=== PATIENT | female | born 1960 | race Caucasian/White ===

== ENCOUNTER 2020-10-18 11:18 | Outpatient (CLI) | payer MEDICARE, SELFPAY ==
--- NOTE | ~2020-10-18 | XR_ITS ---
XR knee RT 3V 10/18/2020 12:06 Indication: Right knee pain Procedure: 3 views right knee Comparison: No prior studies for comparison. Findings: No fracture, subluxation or dislocation. No significant joint effusion. No foreign body. Impression: 1: No significant bone or joint abnormality. Reviewed, dictated and finalized at location B. Impression: 1: No significant bone or joint abnormality.
--- NOTE | ~2020-10-18 | XR_ITS ---
XR shoulder RT min 2V 10/18/2020 12:06 Indication: Right shoulder pain Procedure: 4 views right shoulder Comparison: No prior studies for comparison. Findings: No fracture, subluxation or dislocation. No significant soft tissue abnormality. No foreign bodies. There are mild degenerative changes of the acromioclavicular joint. Visualized lung parenchy ma is unremarkable. Impression: 1: Mild osteoarthritis of the right shoulder. Reviewed, dictated and finalized at location B. Impression: 1: Mild osteoarthritis of the right shoulder.
== END 2020-10-18 11:19 | disposition home or self-care (01) ==
PROVIDERS: PCP Family Medicine; Visit Provider Physician Assistant
DX: M19.011 Primary osteoarthritis, right shoulder (principal); M25.561 Pain in right knee
CPT/HCPCS: 73030; 73562

== ENCOUNTER 2020-10-26 10:56 | Outpatient (CLI) | payer MEDICARE, SELFPAY ==
--- NOTE | ~2020-10-26 | XR_ITS ---
XR thoracic spine 3V DATE: 10/26/2020 12:14 INDICATION: Back pain, radicular pain. TECHNIQUE: AP, lateral, swimmer views COMPARISON: None FINDINGS: Diffuse osteopenia. There is mild degenerative spurring of the thoracic spine. There is min imal thoracic scoliosis. No fracture or bone destruction is evident. The thoracic pedicles are intact. There is no paraspinal soft tissue thickening. IMPRESSION: Osteopenia Mild degenerative spurring Reviewed, dictated and finalized at location A.
== END 2020-10-26 10:57 | disposition home or self-care (01) ==
PROVIDERS: PCP Family Medicine; Visit Provider Physician Assistant
DX: M54.14 Radiculopathy, thoracic region (principal); M85.88 Other specified disorders of bone density and structure, other site
CPT/HCPCS: 72072

== ENCOUNTER 2020-11-01 13:18 | Outpatient (CLI) | payer MEDICARE, SELFPAY ==
--- NOTE | ~2020-11-01 | XR_ITS ---
EXAMINATION: XR lumbar spine min 4V DATE: 11/01/2020 13:53 INDICATION: Dorsalgia, unspecified TECHNIQUE: Anteroposterior, lateral, and bilateral oblique views of the lumbar spine, and cone-down l ateral view of the lumbosacral junction were obtained. COMPARISON: MRI, 09/01/2007 FINDINGS: There is no fracture, dislocation, or subluxation. There is moderate loss of intervertebral disc space height at L2-3. The vertebral body heights are maintained. Small degenerative osteophytes project from the anterior endplates of multiple vertebral bodies. Mild facet osteoarthritis is noted in the lower lumbar spine. IMPRESSION: 1. Mild to moderate lumbar spondylosis without acute findings. Reviewed, dictated and finalized at location A.
--- NOTE | ~2020-11-01 | XR_ITS ---
EXAMINATION:XR cervical spine 4-5V DATE: 11/01/2020 13:53 INDICATION: Neck pain TECHNIQUE: AP, lateral, lateral swimmers and odontoid views of the cervical spine are provided. COMPARISON: MRI, 09/01/2007 FINDINGS: Alignment is normal. The odontoid is intact. No fracture is identified. There is mild to mo derate loss of intervertebral disc space height at C5-6. The vertebral body heights are maintained. S mall degenerative osteophytes project from the anterior endplates of multiple vertebral bodies. There is mild multilevel facet and uncovertebral joint osteoarthritis. Prevertebral soft tissues are felicita l. IMPRESSION: 1. Mild cervical spondylosis without acute findings. Reviewed, dictated and finalized at location A.
== END 2020-11-01 13:19 | disposition home or self-care (01) ==
LOC: ANHIMG 13:25
PROVIDERS: PCP Family Medicine; Visit Provider Physician Assistant
DX: M47.892 Other spondylosis, cervical region (principal); M47.896 Other spondylosis, lumbar region
CPT/HCPCS: 72050; 72110

== ENCOUNTER 2020-12-10 09:25 | Outpatient (CLI) | payer MEDICARE, SELFPAY ==
--- NOTE | ~2020-12-10 | MM_ITS ---
EXAMINATION: MM screening jesús BI w kendall HISTORY: Screening mammogram TECHNIQUE: Craniocaudal and mediolateral oblique 3-D tomosynthesis images were obtained and synthetic 2-D images were generated. CAD analysis was submitted and interpreted. COMPARISON: 11/30/2017, 09/08/2015 bilateral digital screening mammogram examinations BREAST PARENCHYMAL COMPOSITION: There are scattered areas of fibroglandular density. FINDINGS: There is no evidence of suspicious mass, calcification, or architectural distortion to sugg est malignancy in either breast. There has been no suspicious interval change. IMPRESSION: 1. No mammographic evidence of malignancy. 2. Recommend routine screening mammography in one year. BI-RADS Category 1: Negative Reviewed, dictated and finalized at location A.
== END 2020-12-10 09:26 | disposition home or self-care (01) ==
LOC: ANHIMG 09:28
PROVIDERS: PCP Family Medicine; Visit Provider Physician Assistant
DX: Z12.31 Encounter for screening mammogram for malignant neoplasm of breast (principal)
CPT/HCPCS: 77063; 77067

== ENCOUNTER 2022-05-26 02:21 | Emergency (ER) | payer MEDICARE, SELFPAY ==
[2022-05-26] VITALS (35 sets, daily range): BP systolic 94–186; BP diastolic 57–81; PULSE 63–80; RESP 11–32; TEMP 36.7; O2SAT 92–97
--- NOTE | ~2022-05-26 | CT_ITS ---
EXAMINATION:CT chest high resolution w con DATE: 05/26/2022 04:50 INDICATION: Hemoptysis. TECHNIQUE: Computed tomography (CT) of the chest was performed with 100 mm of Omnipaque 350 intraveno us contrast. Automated exposure control and iterative reconstruction technique were employed. The dos e-length product (DLP) was 171.63 mGy-cm. COMPARISON: Chest single view 05/26/2022 FINDINGS: There is mild emphysema. There is a 3 mm nodule in right upper lobe, likely benign. There i s mild scarring at the lung apices. There is mild atelectasis bilaterally. A calcified right lung nod ule and calcified mediastinal lymph nodes are consistent with old granulomatous disease. No pleural e ffusion. The heart size is normal. No pericardial effusion. There is mild right hilar lymphadenopathy , likely reactive. Calcifications in the liver and spleen are consistent with old granulomatous disea se. There is no pulmonary embolus. There is moderate thoracic spondylosis. IMPRESSION: 1. Mild emphysema. 2. Mild scarring at the lung apices. 3. Mild right hilar lymphadenopathy, likely reactive. Reviewed, dictated and finalized at location A. UCTION COOK
--- NOTE | ~2022-05-26 | XR_ITS ---
EXAMINATION: XR chest 1V portable DATE: 05/26/2022 02:48 INDICATION: Cough and shortness of breath. TECHNIQUE: A single frontal view of the chest was obtained. COMPARISON: Chest 2 views 02/01/2016, chest CT 05/26/2022 FINDINGS: The lungs are hyperexpanded, consistent with emphysema. There is mild scarring at the lung apices. No pleural effusion or pneumothorax. The heart size is normal. IMPRESSION: 1. Emphysema. 2. Mild scarring at the lung apices. Reviewed, dictated and finalized at location A. R LINEWORKER
--- NOTE | 2022-05-26 02:27 | ECG_ITS ---
Measurements Intervals [place] Rate: 69 P: 65 NH: 131 QRS: 3 QRSD: 92 T: 56 QT: 377 QTc: 406 Interpretive Statements SINUS RHYTHM POSSIBLE LEFT ATRIAL ENLARGEMENT BASELINE ARTIFACT- V5 BORDERLINE ECG COMPARED TO ECG 04/16/2019 14:56:48 T WAVE ABNORMALITY RESOLVED Electronically Signed On 05-26-2022 6:50:20 WOOL SHEARER by Bola Dale D.O.
[2022-05-26 02:55] LABS: Basophils Absolute Auto 0.1 K/mm3 (0.0-0.1); Basophils Percent Auto 0.5 % (0.2-1.2); Eosinophils Absolute Auto 0.1 K/mm3 (0-0.3); Eosinophils Percent Auto 0.5 % (0-4.4); Hematocrit 43.1 % (37.0-47.0); Hemoglobin 14.5 g/dL (12.0-15.0); Immature Granulocyte Absolute 0.03 K/mm3 (0.00-0.031); Immature Granulocyte Percent A 0.3 % (0-0.5); Lymphocytes Absolute Auto 2.81 K/mm3 (0.9-3.2); Lymphocytes Percent Auto 25.4 % (18.3-44.2); Mean Corpuscular HGB Conc 33.6 g/dl (32-36); Mean Corpuscular Hemoglobin 32.1 pg (26-34); Mean Corpuscular Volume 95.4 fl (80-100); Mean Platelet Volume 9.7 fl (7.4-10.4); Monocytes Absolute Auto 0.8 K/mm3 (0.1-0.6); Monocytes Percent Auto 7.3 % (2.6-8.5); Neutrophils Absolute Auto 7.3 K/mm3 (1.3-6.7); Platelet Count Result 346 k/mm3 (150-375); Red Blood Count 4.52 M/mm3 (4.2-5.4); Red Cell Distribution Width 12.8 % (11.5-14.5); White Blood Count 11.1 K/mm3 (4.5-10.0)
[2022-05-26 03:10] LABS: Alanine Aminotransferase 27 U/L (6-35); Albumin Level 4.5 g/dL (3.5-5.1); Alkaline Phosphatase 98 U/L (38-126); Anion Gap 3 mmol/L (8-16); Aspartate Amino Transferase 37 U/L (14-36); Bilirubin,Total 0.7 mg/dL (0.2-1.3); Blood Urea Nitrogen 10 mg/dL (7-17); Calcium 9.7 mg/dL (8.4-10.2); Carbon Dioxide 36 mmol/L (22-30); Chloride 101 mmol/L (98-107); Estimated CRCL calculation 69 ml/min; Estimated Glomerular Filt Rate > 60; Glucose 120 mg/dL (65-110); Potassium 3.7 mmol/L (3.4-5.0); Sodium 140 mmol/L (137-145)
[2022-05-26 03:22] LABS: Troponin I < 0.012 ng/mL (0.000-0.034)
--- NOTE | 2022-05-26 03:31 | ED.GENADULT ---
HPI - General Adult General Chief complaint: Recheck/Abnormal Lab/Rx Stated complaint: coughing up blood Source: patient, EMS and RN notes reviewed Mode of arrival: EMS Limitations: no limitations History of Present Illness HPI narrative: This is a 62 year old female with history of emphysema who presents for evaluation of hemoptysis. Patient was diagnosed with covid 2 weeks ago and she felt that she was doing better. She reports last night she developed cough, hoarseness and chest tightnessness. She reports coughing up phlegm and it occasionally has blood. She does not cough blood every time. She denies nausea, vomiting, abdominal pain. She does reports sore throat. She denies epistaxis. She denies vomiting blood. She states she has coughed up quarter size of blood over the night. Related Data Home Medications Medication Instructions Recorded Confirmed One-A-Day Womens Formula 04/16/19 10/27/20 aspirin 325 mg tablet 325 mg PO DAILY 10/06/20 10/27/20 cetirizine 10 mg tablet (All Day 10 mg PO DAILY PRN 10/06/20 10/27/20 Allergy (cetirizine)) Allergies Allergy/AdvReac Type Severity Reaction Status Date / Time sulfamethoxazole Allergy Mild Unknown Verified 10/19/21 13:51 sulfamethizole Allergy Unknown Unknown Verified 10/19/21 13:51 trimethoprim Allergy Unknown Unknown Verified 10/19/21 13:51 Review of Systems Constitutional: Constitutional: Denies weakness ENT: Denies epistaxis and Reports sore throat Cardiovascular: Cardiovascular: Denies syncope, Denies rapid heart rate, Denies irregular heart rhythm, Denies leg edema and Denies dyspnea Respiratory: Respiratory: Reports chest congestion, Reports cough, Reports hemoptysis, Denies excessive phlegm production and Denies dyspnea Gastrointestinal: Gastrointestinal: Denies abdominal pain, Denies hematochezia, Denies diarrhea and Denies vomiting Genitourinary: Genitourinary: Denies hematuria and Denies dysuria Musculoskeletal: Musculoskeletal: Denies joint swelling, Denies loss of height and Denies muscle weakness Neurologic: Denies syncope, Denies focal weakness and Denies weakness PMFSH Past Medical History Medical History (Updated 05/26/22 @ 06:39 by Anna Kelley MD) Anxiety Asthma DDD (degenerative disc disease) Depression Herniated disc Mixed hyperlipidemia Thoracic radiculopathy Tobacco abuse Surgical History Surgical History History of rotator cuff surgery right History of tubal ligation Family History Family History Mother Family history of cardiovascular disease Carcinoma of colon Grandparent Parkinson disease Other Parkinson disease Social History Social History Smoking packs per day: 1 Smoking cigarettes per day: 20.0 Years smoked: 30 Smoking pack-years: 30.00 Smoking status: Never smoker Tobacco type: cigarettes (pack a day ) Second hand tobacco smoke exposure: Yes Alcohol intake: never Substance use type: does not use Gender identity (if verbalized by the patient): Female Exam Const: General: no acute distress and alert Nutritional Appearance: well nourished Orientation/consciousness: patient oriented x3 HENMT: Head: normal to inspection Ears: external ears normal Face/Nose/Sinus: Normal external nose present Face and sinus: normal facial exam Mouth: Yes Normal oral and palatal mucosa present, Yes lip normal and Yes moist mucous membranes Teeth and gingiva: dentition normal Throat: posterior oropharynx normal and uvula midline Other: no blood seen in posterior oropharynx Eyes: EOM: EOMs intact bilaterally Neck: Neck: normal visual inspection Chest: Chest palpation & inspection: normal inspection of the chest Resp: Effort & Inspection: normal respiratory effort Auscultation: clear to auscultation jose
[2022-05-26 03:52] LABS: Partial Thromboplastin Time 33.5 SECONDS (22.3-36.8)
[2022-05-26 04:06] LABS: D Dimer 0.46 ug/mL (<0.48)
[2022-05-26 04:51] LABS: SARS-CoV-2 RNA PCR Negative
== END 2022-05-26 07:01 | disposition home or self-care (01) ==
PROVIDERS: Emergency Provider General Practice; PCP Family Medicine
DX: R04.2 Hemoptysis (principal); J43.9 Emphysema, unspecified; J45.909 Unspecified asthma, uncomplicated; E78.2 Mixed hyperlipidemia; F17.210 Nicotine dependence, cigarettes, uncomplicated; Z79.82 Long term (current) use of aspirin
CPT/HCPCS: 36415; 71045; 71260; 80053; 83605; 84484; 85025; 85380; 85610; 85730; 87040; 87077; 93005; 99284; Q9967; U0003; U0005

== ENCOUNTER 2022-05-30 10:03 | Observation (INO) | payer MEDICARE, SELFPAY ==
[2022-05-30] VITALS (7 sets, daily range): BP systolic 117–139; BP diastolic 50–64; PULSE 64–88; RESP 14–20; TEMP 36.2–36.3; O2SAT 93–96
--- NOTE | ~2022-05-30 | XR_ITS ---
Clinical Indication: Covid 19 infection PA and lateral views of the chest: Comparison: 05/26/2022 Findings: The lungs are clear, without evidence of focal consolidation or pleural effusion. Probable COPD. Cardiomediastinal silhouette is within normal limits. Bones and soft tissues are unremarkable. Impression: Clear lungs. COPD. Reviewed, dictated and finalized at location . LINER Impression: Clear lungs. COPD.
[2022-05-30 11:04] LABS: Basophils Absolute Auto 0.1 K/mm3 (0.0-0.1); Basophils Percent Auto 0.7 % (0.2-1.2); Eosinophils Percent Auto 0.4 % (0-4.4); Hematocrit 43.2 % (37.0-47.0); Hemoglobin 14.5 g/dL (12.0-15.0); Immature Granulocyte Absolute 0.02 K/mm3 (0.00-0.031); Immature Granulocyte Percent A 0.3 % (0-0.5); Lymphocytes Absolute Auto 1.45 K/mm3 (0.9-3.2); Mean Corpuscular HGB Conc 33.6 g/dl (32-36); Mean Corpuscular Hemoglobin 32.2 pg (26-34); Mean Corpuscular Volume 95.8 fl (80-100); Mean Platelet Volume 9.5 fl (7.4-10.4); Monocytes Absolute Auto 0.4 K/mm3 (0.1-0.6); Monocytes Percent Auto 5.4 % (2.6-8.5); Neutrophils Absolute Auto 5.3 K/mm3 (1.3-6.7); Neutrophils Percent Auto 73.2 % (45.5-73.1); Platelet Count Result 333 k/mm3 (150-375); Red Blood Count 4.51 M/mm3 (4.2-5.4); Red Cell Distribution Width 12.7 % (11.5-14.5); White Blood Count 7.2 K/mm3 (4.5-10.0)
[2022-05-30 11:12] LABS: Prothrombin Time 13.1 Seconds (11.1-14.7)
[2022-05-30 11:13] LABS: Partial Thromboplastin Time 31.8 SECONDS (22.3-36.8)
[2022-05-30 11:14] LABS: Lactic Acid Reflex 0.8 mmol/L (0.7-2.0)
[2022-05-30 11:16] LABS: Alanine Aminotransferase 25 U/L (6-35); Albumin Level 4.1 g/dL (3.5-5.1); Alkaline Phosphatase 92 U/L (38-126); Anion Gap 2 mmol/L (8-16); Aspartate Amino Transferase 29 U/L (14-36); Bilirubin,Total 0.4 mg/dL (0.2-1.3); Blood Urea Nitrogen 10 mg/dL (7-17); CRP 0.6 mg/dL (<1.0); Calcium 9.1 mg/dL (8.4-10.2); Carbon Dioxide 34 mmol/L (22-30); Chloride 103 mmol/L (98-107); Estimated CRCL calculation 90 ml/min; Estimated Glomerular Filt Rate > 60; Glucose 125 mg/dL (65-110); Potassium 3.8 mmol/L (3.4-5.0); Sodium 139 mmol/L (137-145)
[2022-05-30] MEDS: IPRATROPIUM BR 0.02% INH SOLN 0.5 MG/2.5 ML VIAL 1 MG INHALATION (11:17)
[2022-05-30] MEDS: ALBUTEROL SULFATE NEB 2.5 MG/3 ML INH 15 MG INHALATION (11:17)
[2022-05-30 11:39] LABS: Influenza A QL RT-PCR Negative (Negative); Influenza B QL RT-PCR Negative (Negative); SARS-CoV-2 RNA PCR Negative
[2022-05-30 12:11] LABS: Appearance Urine Clear (Clear); Bilirubin Urine Negative (Negative); Blood Urine Negative (Negative); Color Urine Yellow (Yellow); Glucose Urine UA Negative (Negative); Ketones Urine Negative (Negative); Leukocyte Esterase Ur Negative LEU/UL (Negative); Nitrate Urine Negative (Negative); Protein Urine Negative (Negative); Specific Grav Ur 1.015 (1.001-1.035); Urobilinogen Urine 0.2 mg/dL (<2.0); pH Urine 5.5 (5.0-9.0)
[2022-05-30 12:12] LABS: Add Urine Microscopic? NO
--- NOTE | 2022-05-30 12:56 | ED.RECABL ---
HPI - Recheck/Abnormal Lab/Rx General Chief Complaint: Recheck/Abnormal Lab/Rx Stated Complaint: positive blood cultures - Gram + Bacilli Time Seen by Provider: 05/30/22 10:12 History of Present Illness HPI narrative: 62-year-old female seen here recently for URI-like symptoms presents here after her primary care doctor told her to go to the ER due to positive blood cultures. She stated that she has been feeling unwell for the last few months, including cough, congestion, and all over body aches and pains. No fevers or chills. Related Data Home Medications Medication Instructions Recorded Confirmed One-A-Day Womens Formula 04/16/19 10/27/20 aspirin 325 mg tablet 325 mg PO DAILY 10/06/20 10/27/20 cetirizine 10 mg tablet (All Day 10 mg PO DAILY 10/06/20 10/27/20 Allergy (cetirizine)) celecoxib 200 mg capsule 200 mg PO DAILY 05/30/22 sertraline 50 mg tablet 50 mg PO DAILY 05/30/22 tizanidine 4 mg tablet 4 mg PO DAILY 05/30/22 Allergies Allergy/AdvReac Type Severity Reaction Status Date / Time sulfamethoxazole Allergy Mild Unknown Verified 05/30/22 10:04 sulfamethizole Allergy Unknown Unknown Verified 05/30/22 10:04 trimethoprim Allergy Unknown Unknown Verified 05/30/22 10:04 Review of Systems Review of Systems: CONST: No fever. HEENT: Congestion C/V: No chest pain RESP: Cough GI: No abdominal pain : No dysuria. M/S: Joint pain in shoulders and hips SKIN: No rash. NEURO: Mild headache PSYCH: [No depression] [facility] Past Medical History Medical History (Updated 05/30/22 @ 13:00 by Faith Loja MD) Anxiety Asthma DDD (degenerative disc disease) Depression Herniated disc Mixed hyperlipidemia Thoracic radiculopathy Tobacco abuse Surgical History Surgical History History of rotator cuff surgery right History of tubal ligation Family History Family History Mother Family history of cardiovascular disease Carcinoma of colon Grandparent Parkinson disease Other Parkinson disease Social History Social History Smoking packs per day: 1 Smoking cigarettes per day: 20.0 Years smoked: 30 Smoking pack-years: 30.00 Smoking status: Never smoker Tobacco type: cigarettes (pack a day ) Second hand tobacco smoke exposure: Yes Alcohol intake: never Substance use type: does not use Gender identity (if verbalized by the patient): Female Exam Narrative: EXAMINATION OF ORGAN SYSTEMS/BODY AREAS: Constitutional: Vital signs per nursing GENERAL:[No acute distress, non-toxic appearing.] HEAD: Normal with no signs of head trauma. EYES: EOMI, conjunctiva normal ENT: Hearing grossly intact LUNGS: Nonlabored breathing. HEART: [Regular rate and rhythm] ABD: [Soft], [nontender to palpation] EXT: Normal range of motion, painless passive ROM of hips, shoulders bilaterally, no skin changes SKIN: [No rashes or lesions.] NEURO: [Alert and oriented x 3. No gross focal sensory or strength deficits.] PSYCH: Normal affect Course Vital Signs Vital signs: Vital Signs Temperature 97.4 F L 05/30/22 10:09 Pulse Rate 77 05/30/22 10:09 Respiratory Rate 16 05/30/22 10:09 Blood Pressure 139/62 05/30/22 10:09 Pulse Oximetry 96 05/30/22 10:09 Temperature 97.4 F L 05/30/22 10:09 Pulse Rate 72 05/30/22 12:09 Respiratory Rate 18 05/30/22 12:09 Blood Pressure 123/50 L 05/30/22 12:09 Pulse Oximetry 93 05/30/22 12:09 MDM - Recheck/Abnormal Lab/Rx MDM Narrative Medical decision making narrative: Patient sent here from home for positive blood cultures, she is reporting overall feeling unwell with congestion and cough and body aches, I did review blood cultures and noted that there was gram-positive bacilli, I suspect most likely contaminant however given patient stating that she is feeling unwell and patien
--- NOTE | 2022-05-30 13:11 | PC.NURSE ---
02 sat 88-89% on room air while sleeping. 02 placed at 2 l while pt is napping.
--- NOTE | 2022-05-30 13:28 | IDPHARM ---
Subjective Pharmacy was consulted by Ford Majano regarding infectious diseases for Rere Hogue. Rere Hogue is a 62 year old F with concerns regarding a positive blood culture. Background The patient is currently receiving Vancomycin therapy and has recevied cefepime and Vanocmycin doses in the ER. The patient's PMH includes recent COVID. Additionally, patient has no leukocytosis and the BCX from 05/26 has 1/ GPR - likely contaminant - will follow. Assessment/Recommendation/Discussion Repeat blood cultures were drawn prior to antibiotic administration in the ER. Will follow both sets of cultures for this likely contaminant. Patient was not too ill appearing per provider, given that, initiating continued antibiotic treatment is likely not needed. Provider agreed. Thank you for the interesting consult. Marcio Ryder, PharmD Infectious Disease/Antimicrobial Stewardship Pharmacist 05/30/22; [id number]
--- NOTE | 2022-05-30 19:00 | PM.IMHP ---
H&P: HPI History of Present Illness Date/Time: 05/30/22 19:00 Chief Complaint: Positive blood culture. Narrative: This is a 62-year-old female smoker with COPD, GERD, anxiety, depression, and chronic back pain who presented to the emergency department at the instruction of her primary care physician for evaluation of a positive blood culture. She has not been feeling well since the after [place] and tested positive for COVID shortly thereafter. She started to feel better after couple of weeks however of 5 days ago she once again started having symptoms to include cough which at times has been really productive of sputum admixed with bright red blood, hoarseness, and chest tightness. She was seen emergency department on 05/26/2022. Labs and blood cultures were drawn at that time. Chest x-ray did not show any acute findings. She was offered admission for further workup but declined. Yesterday she received a call that 1 of her blood cultures came back positive and she was told to come in for evaluation. She continues to have the aforementioned symptoms in addition to a mild frontal headache and decreased appetite. She has not had fever, chills, or sweats. No vomiting, diarrhea, or dysuria. She has not had any further episodes of hemoptysis. Review of Systems Review of Systems: Twelve systems were reviewed and are negative except for as per HPI. [facility] Past Medical History Medical History (Updated 05/31/22 @ 00:15 by Dana Majano PA-C) Anxiety Asthma Chronic back pain Chronic obstructive pulmonary disease Degenerative disc disease Depression Herniated disc Mixed hyperlipidemia Thoracic radiculopathy Tobacco abuse Surgical History Surgical History (Updated 05/30/22 @ 14:30 by Dana Majano PA-C) History of colonoscopy History of dilation and curettage (04/2009) History of endometrial ablation (04/2009) History of hysteroscopy (04/2009) History of repair of right rotator cuff History of tubal ligation Family History Family History Mother Family history of cardiovascular disease Carcinoma of colon Grandparent Parkinson disease Other Parkinson disease Social History Social History Social History: Surrogate medical decision maker: Pedro Kelly, spouse. Code status: Full code. Smoking packs per day: 1 Smoking cigarettes per day: 20.0 Years smoked: 40 Smoking pack-years: 40.00 Smoking status: Current every day smoker Tobacco type: cigarettes Second hand tobacco smoke exposure: Yes Alcohol intake: never Substance use: current Substance use type: marijuana Last use: 05/30/2022 Lack of Transportation: No Lack of Food: Never True Current Housing: I Have Housing Concerned About Future Housing: No Difficulty Paying Gas/Electric Bills: No Difficulty Paying for Meds: No Currently Unemployed: No Education: High School Diploma/GED Difficulty w/ Childcare or Family Care: No Spiritual care concerns: No Meds Home Medications and Allergies Home Medications Medication Instructions Recorded Confirmed Type cetirizine 10 mg tablet (All Day 10 mg PO DAILY 10/06/20 05/30/22 History Allergy (cetirizine)) duloxetine 60 mg capsule,delayed 60 mg PO DAILY #90 caps 09/29/21 05/30/22 Rx release pregabalin 75 mg capsule 75 mg PO TID #270 caps 12/12/21 05/30/22 Rx albuterol sulfate 90 mcg/actuation 1 inh inhalation Q4H PRN shortness 02/19/22 05/30/22 Rx aerosol inhaler (ProAir HFA) of breath or wheezing #8.5 grams montelukast 10 mg tablet 10 mg PO DAILY #90 tabs 04/09/22 05/30/22 Rx pantoprazole 40 mg tablet,delayed 40 mg PO DAILY #90 tabs 05/21/22 05/30/22 Rx release celecoxib 200 mg capsule 200 mg PO DAILY 05/30/22 05/30/22 History sertraline 50 mg tablet 50 mg PO DAILY 05/30/22 05/30/22 History tizanidine 4 mg tablet 4 mg P
[2022-05-30] MEDS: PREGABALIN (*CRX) 75 MG CAPSULE PO (20:58)
[2022-05-30] MEDS: ALBUTEROL SULFATE (*SP) AEROSOL 1 PUFF INHALATION (23:50)
[2022-05-31] VITALS (7 sets, daily range): BP systolic 103–133; BP diastolic 44–73; PULSE 65–78; RESP 14–18; TEMP 36.3–36.5; O2SAT 92–94; BMI 26.1
[2022-05-31] MEDS: DULoxetine HCL 60 MG CAPSULE.DR PO (08:25)
[2022-05-31] MEDS: CELECOXIB 200 MG CAPSULE PO (08:25)
[2022-05-31] MEDS: TIZANIDINE HCL 4 MG TABLET PO (08:25)
[2022-05-31] MEDS: PREGABALIN (*CRX) 75 MG CAPSULE PO ×3 (08:25→16:34)
[2022-05-31] MEDS: SERTRALINE HCL 50 MG TABLET PO (08:25)
[2022-05-31] MEDS: MONTELUKAST SODIUM 10 MG TABLET PO (08:26)
[2022-05-31] MEDS: PANTOPRAZOLE 40 MG TABLET PO (08:26)
[2022-05-31] MEDS: NICOTINE (*PBKC) 21 MG PATCH 1 PATCH TRANSDERM (08:28)
--- NOTE | 2022-05-31 09:12 | PM.IMPN ---
Progress Note: A&P Assessment and Plan (1) Positive blood culture: Code(s): R78.81 - Bacteremia Status: Acute Assessment and Plan: The patient presented to the emergency department at the direction of her doctor after she was found have a positive blood culture. One of 4 bottles obtained 05/26/2022 was positive for Gram-positive bacilli in the aerobic bottle only. Is most likely represents a contaminant, there is no history or lab/imaging to suggest underlying bacterial infection. Repeat blood cultures on 05/30/22 Pt did not present with elevated WBC's Pt not started on antibiotics due to likely contaminant in cultures 05/31/22 Blood cultures no growth to date WBC wnl repeat CXR with clear lungs and COPD Plan to discharge after 48 hours no blood culture growth (2) Chronic obstructive pulmonary disease: Code(s): J44.9 - Chronic obstructive pulmonary disease, unspecified Status: Acute Assessment and Plan: DuoNebs ordered p.r.n. Continue Montelukast 10 mg daily (3) Tobacco abuse: Code(s): Z72.0 - Tobacco use Status: Acute Assessment and Plan: Nicotine patch available per patient request. Smoking cessation is encouraged. Vital signs were reviewed and they are stable. Subjective Date/time seen: 05/31/22 09:12 Interval history: 62-year-old with history of COPD admitted to the hospital due to positive blood cultures. Patient tested positive for COVID between and , unsure if the day. Patient has had cough since testing COVID positive. Chest x-ray did not reveal any acute findings. Repeat blood cultures on 05/30/2022. Patient states that she has had increased emotions and crying more frequently. She states that she is not sad and unsure why she is crying. Patient denies fever, dizziness, chest pain, shortness breath, nausea, vomiting, abdominal pain, urinary frequency and urgency. Review of Systems Review of Systems: All systems reviewed & are unremarkable except as noted in HPI and below Exam Narrative: GENERAL: Comfortable, no acute distress HENMT: moist mucous membranes EYES: EOM intact b/l NECK: no lymphadenopathy RESPIRATORY: Distant breath sounds yet course in nature. CARDIO: RRR GI: soft, nontender, bowel sounds present SKIN: no rashes EXTREMITIES: no edema, redness or tenderness Objective Data Vital Signs Vital Signs: Vital Signs - 24 hr 05/30/22 10:09 05/30/22 11:20 05/30/22 11:30 Temperature 97.4 F L Pulse Rate 77 88 79 Respiratory Rate 16 18 20 Blood Pressure 139/62 118/64 Pulse Oximetry 96 94 Oxygen Delivery Oxygen Flow Rate 05/30/22 12:09 05/30/22 13:11 05/30/22 13:38 Temperature Pulse Rate 72 73 Respiratory Rate 18 16 Blood Pressure 123/50 L 117/53 L Pulse Oximetry 93 93 95 Oxygen Delivery Nasal Cannula Oxygen Flow Rate 2 05/30/22 22:00 05/31/22 06:00 05/31/22 08:00 Temperature 97.2 F L 97.3 F L Pulse Rate 64 78 Respiratory Rate 14 16 Blood Pressure 118/56 L 119/73 Pulse Oximetry 93 94 Oxygen Delivery Room Air Oxygen Flow Rate 05/31/22 08:32 Temperature Pulse Rate Respiratory Rate Blood Pressure Pulse Oximetry 94 Oxygen Delivery Room Air Oxygen Flow Rate Intake/Output Intake/Output: Intake & Output 05/28/22 05/29/22 05/30/22 05/31/22 23:59 23:59 23:59 23:59 Intake Total 550 550 Output Total 450 Balance 550 100 Meds/Results Medications: Active Medications Generic Name Dose Route Start Last Admin Trade Name Freq PRN Reason Stop Dose Admin Albuterol 1 puff 05/30/22 20:00 05/30/22 23:50 Albuterol Sulfate (*Sp) Aerosol 1 Puff INHALATION 1 puff Q4H PRN Administration shortness of breath or wheezing Celecoxib 200 mg 05/31/22 09:00 05/31/22 08:25 Celecoxib 200 Mg Capsule PO 200 mg DAILY IVAN Administration Duloxetine HCl 60 mg 05/31/22 09:00 05/31/22 08:25 Duloxetine Hcl 60
[2022-05-31 09:52] LABS: Hematocrit 44.6 % (37.0-47.0); Mean Corpuscular HGB Conc 33.6 g/dl (32-36); Mean Corpuscular Hemoglobin 32.3 pg (26-34); Mean Corpuscular Volume 95.9 fl (80-100); Mean Platelet Volume 9.3 fl (7.4-10.4); Platelet Count Result 332 k/mm3 (150-375); Red Blood Count 4.65 M/mm3 (4.2-5.4); Red Cell Distribution Width 12.8 % (11.5-14.5); White Blood Count 4.9 K/mm3 (4.5-10.0)
[2022-05-31 10:08] LABS: Anion Gap 5 mmol/L (8-16); Blood Urea Nitrogen 10 mg/dL (7-17); Carbon Dioxide 32 mmol/L (22-30); Chloride 102 mmol/L (98-107); Estimated CRCL calculation 80 ml/min; Estimated Glomerular Filt Rate > 60; Glucose 144 mg/dL (65-110); Potassium 3.9 mmol/L (3.4-5.0); Sodium 139 mmol/L (137-145)
[2022-05-31] MEDS: IPRATROPIUM BR 0.02% INH SOLN 0.5 MG/2.5 ML VIAL INHALATION (20:28)
[2022-05-31] MEDS: ALBUTEROL SULFATE NEB 2.5 MG/3 ML INH INHALATION (20:29)
[2022-06-01] VITALS (8 sets, daily range): BP systolic 132; BP diastolic 60; PULSE 65–114; RESP 16–18; TEMP 36.1; O2SAT 95–96
[2022-06-01] MEDS: ALBUTEROL SULFATE NEB 2.5 MG/3 ML INH INHALATION ×3 (02:30→14:31)
[2022-06-01] MEDS: IPRATROPIUM BR 0.02% INH SOLN 0.5 MG/2.5 ML VIAL INHALATION ×3 (02:30→14:31)
[2022-06-01] MEDS: IBUPROFEN 600 MG TABLET PO (03:38)
[2022-06-01 06:17] LABS: Hematocrit 44.8 % (37.0-47.0); Mean Corpuscular HGB Conc 33.5 g/dl (32-36); Mean Corpuscular Hemoglobin 31.5 pg (26-34); Mean Corpuscular Volume 94.1 fl (80-100); Mean Platelet Volume 9.7 fl (7.4-10.4); Platelet Count Result 354 k/mm3 (150-375); Red Blood Count 4.76 M/mm3 (4.2-5.4); Red Cell Distribution Width 12.3 % (11.5-14.5); White Blood Count 6.1 K/mm3 (4.5-10.0)
[2022-06-01 06:32] LABS: Alanine Aminotransferase 22 U/L (6-35); Alkaline Phosphatase 75 U/L (38-126); Anion Gap 4 mmol/L (8-16); Aspartate Amino Transferase 28 U/L (14-36); Bilirubin,Total 0.6 mg/dL (0.2-1.3); Blood Urea Nitrogen 13 mg/dL (7-17); Carbon Dioxide 33 mmol/L (22-30); Chloride 101 mmol/L (98-107); Estimated CRCL calculation 80 ml/min; Estimated Glomerular Filt Rate > 60; Glucose 97 mg/dL (65-110); Potassium 3.8 mmol/L (3.4-5.0); Sodium 138 mmol/L (137-145)
[2022-06-01] MEDS: NICOTINE (*PBKC) 21 MG PATCH 1 PATCH TRANSDERM (08:36)
[2022-06-01] MEDS: PANTOPRAZOLE 40 MG TABLET PO (08:36)
[2022-06-01] MEDS: CELECOXIB 200 MG CAPSULE PO (08:36)
[2022-06-01] MEDS: MONTELUKAST SODIUM 10 MG TABLET PO (08:36)
[2022-06-01] MEDS: SERTRALINE HCL 50 MG TABLET PO (08:36)
[2022-06-01] MEDS: DULoxetine HCL 60 MG CAPSULE.DR PO (08:36)
[2022-06-01] MEDS: TIZANIDINE HCL 4 MG TABLET PO (08:36)
[2022-06-01] MEDS: LORATADINE 10 MG TABLET PO (08:36)
[2022-06-01] MEDS: PREGABALIN (*CRX) 75 MG CAPSULE PO ×2 (08:38→14:35)
--- NOTE | 2022-06-01 14:47 | PM.DS ---
DS: Admitting Diagnosis Discharge Date 06/01/22 Admitting Diagnosis Positive blood culture DS: Discharge Diagnosis Discharge Diagnosis (1) Positive blood culture: Code(s): R78.81 - Bacteremia Status: Acute Assessment and Plan: The patient presented to the emergency department at the direction of her doctor after she was found have a positive blood culture. One of 4 bottles obtained 05/26/2022 was positive for Gram-positive bacilli in the aerobic bottle only. Is most likely represents a contaminant, there is no history or lab/imaging to suggest underlying bacterial infection. Repeat blood cultures on 05/30/22 Pt did not present with elevated WBC's Pt not started on antibiotics due to likely contaminant in cultures 05/31/22 Blood cultures no growth to date WBC wnl repeat CXR with clear lungs and COPD Plan to discharge after 48 hours no blood culture growth (2) Chronic obstructive pulmonary disease: Code(s): J44.9 - Chronic obstructive pulmonary disease, unspecified Status: Acute Assessment and Plan: DuoNebs ordered p.r.n. Continue Montelukast 10 mg daily (3) Tobacco abuse: Code(s): Z72.0 - Tobacco use Status: Acute Assessment and Plan: Nicotine patch available per patient request. Smoking cessation is encouraged. Vital signs were reviewed and they are stable. DS: Summary Hospital Course Reason for hospitalization: Positive blood culture Hospital Course: 62-year-old patient was seen in the ED on 05/26/2022 for upper respiratory symptoms and was found to have 1 positive blood culture on 05/30/2022. Patient has not been feeling well but did test positive for COVID in between [place] and . Patient has cough, congestion and body aches. Patient does have chronic cough due to COPD. Patient did not have fever, chills, nausea, vomiting, diarrhea or dysuria. Patient not put on antibiotics due to low probability of bacterial infection. Patient did not have an elevated white blood cell count, her urine was negative, and was afebrile. Blood cultures redrawn and after 48 hours there was no growth. Will monitor patient's blood cultures and call her with any updates as necessary. 06/01/2022 patient states that she is feeling much better today both her mood and her URI symptoms have improved. Will discharge patient and follow up as necessary on her blood cultures. See above for more information regarding patient's hospital stay. Time Spent with Patient Time attestation: Total time spent providing and/or coordinating discharge services: Exam Narrative: GENERAL: Comfortable, no acute distress HENMT: moist mucous membranes EYES: EOM intact b/l NECK: no lymphadenopathy RESPIRATORY: clear to auscultation CARDIO: RRR GI: soft, nontender, bowel sounds present SKIN: no rashes EXTREMITIES: no edema, redness or tenderness DS: Data Data Completed and Pending Labs on day of discharge: Labs from last 24 hours 06/01/22 06/01/22 05:24 05:24 WBC 6.1 RBC 4.76 Hgb 15.0 Hct 44.8 MCV 94.1 MCH 31.5 MCHC 33.5 RDW 12.3 Plt Count 354 MPV 9.7 Sodium 138 Potassium 3.8 Chloride 101 Carbon Dioxide 33 H Anion Gap 4 L BUN 13 Creatinine 0.60 L Estim Creat Clear Calc 80 Estimated GFR > 60 Glucose 97 Calcium 9.0 Total Bilirubin 0.6 AST 28 ALT 22 Alkaline Phosphatase 75 Total Protein 7.0 Albumin 4.0 Preliminary micro results at discharge 05/30/22 10:50 Blood Culture - Preliminary Blood 05/30/22 10:50 Blood Culture - Preliminary Blood Discharge Plan Discharge Attending physician on discharge: Rio Cummins Discharging Clinician: Doreen Pepe Patient Disposition: Home, Self-Care Activity: as tolerated Diet: as tolerated Discharge Instructions: Take all medications as prescribed even if feeling better Wear a mask in public, and stay away from la
--- NOTE | 2022-06-06 08:51 | PC.NURSE ---
Blood cx are negative.
== END 2022-06-01 16:05 | disposition home or self-care (01) ==
LOC: ANHED 13:00 → ANH3MEDSUR 15:09
PROVIDERS: Internal Medicine Critical Care Medicine; Admitting Provider Internal Medicine; Emergency Provider Emergency Medicine; PCP Family Medicine; Visit Provider Internal Medicine
DX: R78.81 Bacteremia (principal); R09.89 Other specified symptoms and signs involving the circulatory and respiratory systems; K21.9 Gastro-esophageal reflux disease without esophagitis; F41.9 Anxiety disorder, unspecified; F32.A Depression, unspecified; J44.9 Chronic obstructive pulmonary disease, unspecified; G89.29 Other chronic pain; M54.9 Dorsalgia, unspecified; M51.9 Unspecified thoracic, thoracolumbar and lumbosacral intervertebral disc disorder; E78.5 Hyperlipidemia, unspecified; Z20.822 Contact with and (suspected) exposure to COVID-19; M19.90 Unspecified osteoarthritis, unspecified site; R06.02 Shortness of breath; Z79.51 Long term (current) use of inhaled steroids; Z79.82 Long term (current) use of aspirin; Z79.899 Other long term (current) drug therapy
CPT/HCPCS: 36415; 71046; 80048; 80053; 81003; 83605; 85025; 85027; 85610; 85730; 86140; 87040; 87636; 94640; 96365; 96366; 96367; 99285; A9270; G0378; J0692; J3370

== ENCOUNTER 2024-01-13 11:16 | Emergency (ER) | payer MEDICARE, SELFPAY ==
--- NOTE | ~2024-01-13 | XR_ITS ---
Left Forearm AP and lateral views of the left forearm were performed. Clinical History: Pain Findings: No fracture or dislocation is seen. Osseous alignment in anatomic. Joint spaces are prese rved. Soft tissues are unremarkable. Impression: Unremarkable exam. Reviewed, dictated and finalized at location M. Impression: Unremarkable exam.
--- NOTE | ~2024-01-13 | XR_ITS ---
Left elbow Technique: AP, oblique, and lateral views were obtained. Clinical History: Pain Findings: No acute fracture or dislocation is seen. Osseous alignment is anatomic. Joint spaces are p reserved. There is no displacement of the fat pads, and soft tissues are unremarkable. Impression: Unremarkable radiographs. Reviewed, dictated and finalized at location . Impression: Unremarkable radiographs.
[2024-01-13 11:47] VITALS: BP 166/74; PULSE 84; RESP 19; TEMP 36.4; O2SAT 98
--- NOTE | 2024-01-13 13:37 | ED.GENADULT ---
HPI - General Adult General Chief complaint: Extremity Injury, Upper Stated complaint: left arm laceration, fall Time Seen by Provider: 01/13/24 13:29 History of Present Illness HPI narrative: Patient is a 61-year-old female who presents to the emergency department this evening due to left forearm injury. Patient states that she fell on Sunday while she was strong and sustained a laceration to her forearm. Patient states that since then she has been having pain to her left arm and wanted make sure that she did not recur arm. Denies hitting her head or any loss of consciousness. No additional symptoms or concerns at this time. Related Data Home Medications Medication Instructions Recorded Confirmed cetirizine 10 mg tablet (All Day 10 mg PO DAILY 10/06/20 07/17/22 Allergy (cetirizine)) sertraline 50 mg tablet 50 mg PO DAILY 05/30/22 07/17/22 Allergies Allergy/AdvReac Type Severity Reaction Status Date / Time sulfamethoxazole Allergy Mild Unknown Verified 10/24/23 15:18 sulfamethizole Allergy Unknown Unknown Verified 10/24/23 15:18 trimethoprim Allergy Unknown Unknown Verified 10/24/23 15:18 latex AdvReac Unknown Rash Verified 10/24/23 15:18 Review of Systems Review of Systems: All systems are reviewed and are negative unless stated otherwise in the HPI. [facility] Past Medical History Medical History Anxiety Asthma Chronic back pain Chronic obstructive pulmonary disease Degenerative disc disease Depression Herniated disc Mixed hyperlipidemia Thoracic radiculopathy Tobacco abuse Surgical History Surgical History History of colonoscopy History of dilation and curettage (04/2009) History of endometrial ablation (04/2009) History of hysteroscopy (04/2009) History of repair of right rotator cuff History of tubal ligation Family History Family History Mother Family history of cardiovascular disease Carcinoma of colon Grandparent Parkinson disease Other Parkinson disease Social History Social History Social History: Surrogate medical decision maker: Pedro Kelly, spouse. Code status: Full code. Smoking packs per day: 1 Smoking cigarettes per day: 20.0 Years smoked: 40 Smoking pack-years: 40.00 Smoking status: Current every day smoker Tobacco type: cigarettes Second hand tobacco smoke exposure: Yes Alcohol intake: never Substance use: current Substance use type: marijuana Last use: 05/30/2022 Lack of Transportation: No Lack of Food: Never True Current Housing: I Have Housing Concerned About Future Housing: No Difficulty Paying Gas/Electric Bills: No Difficulty Paying for Meds: No Currently Unemployed: No Education: High School Diploma/GED Difficulty w/ Childcare or Family Care: No Living arrangements: with family Occupation/Education: other Spiritual care concerns: No Exam Narrative: General: Alert, awake, afebrile, in no acute distress. HEENT: PERRL, no rhinorrhea, no post nasal drip, oropharynx clear. Cardiovascular: Regular rate and rhythm, no murmurs, rubs or gallops, no peripheral edema. Respiratory: Clear to auscultation bilaterally, no tachypnea, no wheezing, no rhonchi, no rubs, no respiratory distress. Abdomen: Soft, nontender, nondistended, no rebound, no guarding, no peritoneal signs. Musculoskeletal: No joint swelling or deformity, normal muscle tone, intact range of motion at the left shoulder, elbow and wrist joints. Skin: Multiple abrasions along the patient's left forearm with a 2 cm irregular skin tear along the mid forearm. Neurological: Alert and oriented to person, place, and time. Follows all commands. No focal deficits, speech is clear and fluent. Course Vital Signs Vital signs: Magda
[2024-01-13] MEDS: TETANUS,DIPHTHERIA,AC PERTUSSIS ADULT (0.5 ML) BOOSTRIX IM (14:24)
== END 2024-01-13 14:33 | disposition home or self-care (01) ==
PROVIDERS: Emergency Provider Emergency Medicine; PCP Family Medicine
DX: S51.812A Laceration without foreign body of left forearm, initial encounter (principal); W19.XXXA Unspecified fall, initial encounter; Z23 Encounter for immunization; F41.8 Other specified anxiety disorders; J44.9 Chronic obstructive pulmonary disease, unspecified; E78.5 Hyperlipidemia, unspecified; M54.9 Dorsalgia, unspecified; G89.29 Other chronic pain; F17.210 Nicotine dependence, cigarettes, uncomplicated
CPT/HCPCS: 12001; 73070; 73090; 90471; 90715; 99283

== ENCOUNTER 2024-04-09 11:27 | Emergency (ER) | payer MEDICARE, SELFPAY ==
--- NOTE | ~2024-04-09 | XR_ITS ---
EXAMINATION: XR chest 2V DATE: 04/09/2024 12:17 INDICATION: Cough. TECHNIQUE: Frontal and lateral views of the chest were obtained. COMPARISON: Chest 2 views 05/30/2022 FINDINGS: There is mild scarring at the lung apices. No pleural effusion or pneumothorax. The heart s ize is normal. IMPRESSION: 1. Stable mild scarring at the lung apices. Reviewed, dictated and finalized at location A. E INSTRUCTOR
--- NOTE | 2024-04-09 11:32 | ED_ITS ---
HPI - URI/Sore Throat General Chief Complaint: Upper Respiratory Infection Stated Complaint: cough / sinus infection / RT Ear Pain Time Seen by Provider: 04/09/24 11:54 Source: patient and RN notes reviewed Mode of arrival: ambulatory Limitations: no limitations History of Present Illness HPI Narrative: 64-year-old female presents with concern for right ear pain, one-week history of productive cough, chest congestion. She reports sinus congestion with a bloody nose. She reports she has been taking old dose of amoxicillin for 3 days. She reports she has used her nebulizer at home 3 times the past week. MD elicited complaint: cough and other (ear pain) Related Data Allergies Allergy/AdvReac Type Severity Reaction Status Date / Time latex Allergy Unknown Rash Verified 04/09/24 11:41 sulfamethoxazole AdvReac Mild Gastrointestinal Verified 04/09/24 11:41 Upset sulfamethizole AdvReac Unknown Gastrointestinal Verified 04/09/24 11:41 Upset trimethoprim AdvReac Unknown Gastrointestinal Verified 04/09/24 11:41 Upset Review of Systems Review of Systems: CONSTITUTIONAL: Reports malaise. Denies chills, sweats, or fever. EYES: Denies visual changes, redness, or discharge. ENT: Reports rhinorrhea, congestion, sinus pain, otalgia CARDIOVASCULAR: Denies chest pain, palpitations, or edema. RESPIRATORY: Reports productive cough. Denies dyspnea. GASTROINTESTINAL: Denies abdominal pain, nausea, vomiting, diarrhea SKIN: Denies rash or itching. MUSCULOSKELETAL: Denies myalgia. NEUROLOGIC: Denies headache. All systems reviewed & are unremarkable except as noted in HPI and below PMFSH Past Medical History Medical History Anxiety Asthma Chronic back pain Chronic obstructive pulmonary disease Degenerative disc disease Depression Herniated disc Mixed hyperlipidemia Thoracic radiculopathy Tobacco abuse Surgical History Surgical History History of colonoscopy History of dilation and curettage (04/2009) History of endometrial ablation (04/2009) History of hysteroscopy (04/2009) History of repair of right rotator cuff History of tubal ligation Family History Family History Mother Family history of cardiovascular disease Carcinoma of colon Grandparent Parkinson disease Other Parkinson disease Social History Social History Social History: Surrogate medical decision maker: Pedro Kelly, spouse. Code status: Full code. Smoking packs per day: 1 Smoking cigarettes per day: 20.0 Years smoked: 40 Smoking pack-years: 40.00 Smoking status: Current every day smoker Tobacco type: cigarettes Second hand tobacco smoke exposure: Yes Alcohol intake: never Substance use: current Substance use type: marijuana Last use: 05/30/2022 Lack of Transportation: No Lack of Food: Never True Current Housing: I Have Housing Concerned About Future Housing: No Difficulty Paying Gas/Electric Bills: No Difficulty Paying for Meds: No Currently Unemployed: No Education: High School Diploma/GED Difficulty w/ Childcare or Family Care: No Living arrangements: with family Occupation/Education: other Spiritual care concerns: No Comments At time of signature, agree with nursing past medical, surgical, social and family history. There is no relevant family history pertinent to the presenting complaint Exam Narrative: GENERAL: Nontoxic-appearing, well-nourished, and in no acute distress. HEAD: Normocephalic EYES: PERRLA, conjunctivae clear ENT: Nares clear. Mucous membranes moist. TM pearly wright with dull light reflex bilaterally; no tragal tenderness. Oropharynx not erythematous without lesions. Tonsils not enlarged and without exudate, no drooling, no hoarseness, no trismus, uvula midline. NECK: Supple. No lymphadenopathy CHEST: Scattered inspiratory wheeze, breath sounds equal. No rhonchi, rales, or stridor. No respiratory distress, speaks in full sentences. HEART: Regular rate and rhythm. No murmur heard. SKIN: Warm, dry, no rash. NEURO: Alert and oriented x3. PSYCH: Normal mood and affect Course Course Emergency Course: Patient is aware of diagnosis, understands and agrees to treatment plan. Anticipatory guidance given. Patient agrees to follow-up as directed and is aware of reasons to seek care at the emergency department. Portions of this record may have been created with voice recognition software Level of Care: Express Care Visit Vital Signs Vital signs: Reviewed. MDM - URI/Sore Throat MDM Narrative Medical decision making narrative: Differential diagnosis considered: Barnes virus, strep pharyngitis, allergic rhinitis, upper respiratory tract infection, sinusitis, rhinosinusitis, nasopharyngitis. viral pharyngitis, otitis media, otitis externa, pneumonia, bronchitis, viral cough syndrome, viral syndrome, and influenza. Exam findings show no acute concerns or changes; patient is non-toxic appearing and is in no distress. Patient is appropriate for outpatient treatment and follow-up. Lab Data Attestation: I reviewed the patient's lab results. Imaging Data My impression: Images reviewed, interpreted by radiologist, agree, see report. Radiologist's impression: EXAMINATION: XR chest 2V DATE: 04/09/2024 12:17 INDICATION: Cough. TECHNIQUE: Frontal and lateral views of the chest were obtained. COMPARISON: Chest 2 views 05/30/2022 FINDINGS: There is mild scarring at the lung apices. No pleural effusion or pneumothorax. The heart size is normal. IMPRESSION: 1. Stable mild scarring at the lung apices. Critical Care Time Critical Care Time Critical Care Time: No Discharge Plan Discharge Clinical Impression: Otitis media, Bronchitis Patient Disposition: Home, Self-Care Condition: Stable Instructions: Antibiotic Form, Ear Infection (ED) Additional Instructions: Your x-ray does not show pneumonia Take antibiotics and steroids as directed. Recommend antihistamine such as Benadryl at night time and Zyrtec or Mita during the day until symptoms improve Also, recommend symptomatic treatment includes: rest, fluids, and increase humidity of the air at home. Recommend Acetaminophen as directed on the bottle to reduce fever, pain Please schedule a follow-up visit with your personal physician for further evaluation and treatment within 3-5days. If your symptoms persist, change or worsen significantly before you can contact your personal physician then please, without delay, go to the emergency department for further evaluation. Prescriptions: New amoxicillin 875 mg tablet 875 mg PO TID 10 Days Qty: 30 0RF prednisone 20 mg tablet 40 mg PO DAILY 5 Days Qty: 10 0RF No Action albuterol sulfate [ProAir HFA] 90 mcg/actuation HFA aerosol inhaler 1 inh INHALATION Q4H PRN (Reason: shortness of breath or wheezing) Qty: 25.5 3RF duloxetine 60 mg capsule,delayed release(DR/EC) 60 mg PO DAILY Qty: 90 2RF pantoprazole 40 mg tablet,delayed release (DR/EC) 40 mg PO DAILY Qty: 100 3RF pregabalin 75 mg capsule 75 mg PO TID Qty: 270 1RF montelukast 10 mg tablet 10 mg PO DAILY Qty: 100 2RF celecoxib 200 mg capsule See Rx Instructions .ROUTE .COMPLEX Qty: 100 2RF Dose Instruction: TAKE 1 CAPSULE BY MOUTH DAILY NEEDED FOR PAIN Rx Instructions: TAKE 1 CAPSULE BY MOUTH DAILY NEEDED FOR PAIN tizanidine 4 mg tablet See Rx Instructions .ROUTE .COMPLEX Qty: 270 0RF Dose Instruction: TAKE 1 TABLET BY MOUTH EVERY 8 HOURS NEEDED FOR MUSCLE SPASTICITY Rx Instructions: TAKE 1 TABLET BY MOUTH EVERY 8 HOURS NEEDED FOR MUSCLE SPASTICITY Follow-up/Referrals: Cata Fischer MD [Primary Care Provider] - Time of Disposition: 12:30
[2024-04-09 11:38] VITALS: BP 128/57; PULSE 80; RESP 17; TEMP 36.5; O2SAT 96
[2024-04-09 11:43] VITALS: BP 128/57; PULSE 80; RESP 17; TEMP 36.5; O2SAT 96
== END 2024-04-09 12:35 | disposition home or self-care (01) ==
PROVIDERS: Emergency Provider Nurse Practitioner; PCP Family Medicine
DX: H66.91 Otitis media, unspecified, right ear (principal); J40 Bronchitis, not specified as acute or chronic; J44.9 Chronic obstructive pulmonary disease, unspecified; E78.2 Mixed hyperlipidemia; F17.210 Nicotine dependence, cigarettes, uncomplicated
CPT/HCPCS: 71046; 99213; G0463

== ENCOUNTER 2025-05-11 15:11 | Outpatient (CLI) | payer MEDICARE, SELFPAY ==
--- NOTE | ~2025-05-11 | XR_ITS ---
XR ribs LT 2V w CXR 2V INDICATION: Chest pain COMPARISON: NONE PA CHEST: No acute pulmonary process is evident. Cardiac size and pulmonary vascularity are unremarkable There is no pleural effusion or pneumothorax. No consolidation is identified. LEFT RIBS: 3 views of the left ribs demonstrate no acute rib fracture. IMPRESSION: 1. No acute pulmonary process. 2. No rib fracture is identified. Reviewed, dictated and finalized at location S. ENSATION EXPERT
--- OUTSIDE RECORDS SUMMARY | 2025-05-11 15:17 | XMS_ITS | Encounter Summary ---
Author Organization [facility] Address [address] [place] [address] Phone Care Team Providers Care Safety Council Director Name Role Phone Cata Fischer MD Primary Care Provider [phone] Encounter Details Date Type Department Care Team (Late st Contact Info) Description 02/01/2021 Orders Only [facility]R [phone] Scanning, Provider Social History Tobacco Use Types Packs/Day Years Used Date Smoking Tobacco: Every Day Comments Unknown Sex and Gender Information Value Date Recorded Sex Assigned at Not on file 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 Gender Identity Female 01/31/2021 12:27 PM CDT Sexual Orientation Straight 01/31/2021 12 :27 PM CDT documented as of this encounter Plan of Treatment Not on file documented as of this encounter Procedures Procedure Name Priority Date/Time Associated Diagnosis Comments SCAN - RADIOLOGY/IMAGING 02/01/2021 documented in this encounter Results * SCAN - RADIOLOGY/IMAGING (02/01/2021) Anatomical Region Laterality Modality Other us Provider Scanning Final Result documented in this encounter Visit Diagnoses Not on filedocumented in this encounter Care Teams Safety Council Director Relationship Specialty Start Date End Date Cata Fischer MD PCP - General 09/04/16 documented as of this encounter
--- OUTSIDE RECORDS SUMMARY | 2025-05-11 15:17 | XMS_ITS | Clinical Summary ---
Author Organization [facility] Address [address] [place] [address] Care Team Providers Care Pmp Name Role Phone Cata Fischer MD Primary Care Provider [phone] Allergies Active Allergy Reactions Criticality Noted Date Comments Sulfamethoxazole-Trimethop rim Stomach upset Reaction: GI upset, Medications aspirin 325 mg tablet 01/31/2021 Active calcium citrate-vitamin D3 1,000 mg-10 mcg /30 mL liquid 01/31/2021 Active celecoxib (CeleBREX) 50 mg capsule Active DULoxetine 60 mg capsule, delayed rel sprinkle 11/10/2010 Active fish,bora,flax oils-om3,6,9no1 1,200 mg capsule 01/31/2021 Active magnesium oxide (MAG-OX) 400 mg (241.3 mg elemental magnesium) tablet Active montelukast (SINGULAIR) 10 mg tablet Active pantoprazole (PROTONIX) 40 mg injection 01/31/2021 Active pregabalin (LYRICA) 75 mg capsule 1 11/05/2020 Active sertraline (ZOLOFT) 50 mg tablet 01/31/2021 Active tiZANidine (ZANAFLEX) 4 mg tablet 11/29/2017 Active multivitamin capsule Take 1 capsule by mouth daily Active Active Problems Problem Noted Date Diagnosed Date Pain in shoulder 01/10/2016 Surgical History Surgery Date Site/Laterality Comments KNEE ARTHROSCOPY W/ LATERAL RELEASE 05/14/2015 - 016 Medical History Medical History Date Comments Anxiety 10 years Depression 10 years Family History Medical History Relation Name Comments Arthritis Father Richard Gordillo Family history of arthritis - (Added by TW Conv) Hypertension Father Richard Gordillo Family history of hypertension - (Added by TW Conv) Cancer Mother Steffi Gordillo Family hist ory of malignant neoplasm - (Added by TW Conv) Heart disease Mother Steffi Gordillo Family his tory of cardiac disorder - (Added by TW Conv) Hypertension Mother Steffi Gordillo Family hist ory of hypertension - (Added by TW Conv) Lung disease Mother Steffi Gordillo Family hist ory of lung disease - (Added by TW Conv) Relation Name Status Comments Father Richard Gordillo Mother Steffi Gordillo Social History Tobacco Use Types Packs/Day Years Used Date Smoking Tobacco: Every Day Personal Safety Answer Date Recorded Getting School Help Needed Not on file 07/07 Comments Unknown Sex and Gender Information Value Date Recorded Sex Assigned at Not on file 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
--- OUTSIDE RECORDS SUMMARY | 2025-05-11 15:17 | XMS_ITS | Patient Health Record ---
Author Organization [facility] [employer] [facility] Address [address] [place] [address] Care Team Providers Care Locomotive Repairer Diesel Name Role Phone James Nguyễn Unavailable [phone] Reason For Referral No Information Medications Medication SIG (Take, Route, Frequency, Duration) Notes Start Date End Date Status Montelukast Sodium 10 MG Tablet Oral 08/30/2022 Active Pregabalin 75 MG Capsule Oral 08/30/2022 Active ProAir HFA 108 (90 Base) MCG/ACT Aerosol Solution Inhalation 08/30/2022 Act jalyn Pantoprazole Sodium 40 MG Tablet Delayed Release Oral 08/30/2022 Activ e DULoxetine HCl 60 MG Capsule Delayed Release Particles Oral 08/30/2022 Active busPIRone HCl 15 MG Tablet Oral 08/30/2022 Active tiZANidine HCl 4 MG Tablet Oral 08/30/2022 Active Celecoxib 200 MG Capsule Oral 08/30/2022 Active QUEtiapine Fumarate 25 MG Tablet Oral 08/30/2022 Active Sertraline HCl 50 MG Tablet Oral 08/30/2022 Active Social History Social History Additional Details Category Social Info Options Details Migrated Social History Migrated Social History Alcohol Intake: None 08/30/2022,Tobacco Years: Current every day smoker 08/30/2022 Plan Of Treatment No Information Insurance Providers Payer Name Payer Address Payer Phone Subscriber Number Group Number Insured Name Patient Relationship to Insured Coverage Start Date Coverage End Date [employer] Medicare Replacement/ Advantage - Ppo [address] [address] [place] [phone] [id number] MABEL VACA Self - patient is the insured Medical (General) History Surgical History Surgery Date(Month/Year) Endometrial ablation (80154) 2008
== END 2025-05-11 15:12 | disposition home or self-care (01) ==
PROVIDERS: PCP Student in an Organized Health Care Education/Training Program
DX: R07.89 Other chest pain (principal); W19.XXXA Unspecified fall, initial encounter
CPT/HCPCS: 71046; 71100